=== PATIENT | male | born 1945 | race Caucasian/White ===

== ENCOUNTER 2020-11-09 03:30 | Emergency (ER) | payer MEDICARE ==
[~2020-11-09] VITALS: Ht 170.2 cm; Wt 90.5 kg
[~2020-11-09 03:30] MED LIST: AMLO-186 PO; ATOR40TA59 PO; BUPR150T8 PO; GALA24CA7 PO; METO25TA4 PO; TAMS0.4C97 PO; VENL75CA PO
--- NOTE | 2020-11-09 03:34 | PHYS DOC ---
Past History Past Medical History: Arthritis, Prostatitis, Sciatica General Adult HPI: HPI: ".. This damn hip...and lower back in killing me.. the pain is running all the way down my Rt. leg.. I hurts so bad.. I pissed my pants.. sorry..".." This damn hip has been killing me since 930 last night...".." I ve been taking some aspirin.. but need something else for pain.//" Patient is a 75 year old male who presents with above hx and complaints of Rt. Back and Hip pain. Patient denies any falls. Patient has had past episodes of severe pain in right hip and low back. Patient states that he has no recent fever or chills. No problems with defecation. Does have problems of urination due to enlarged prostate. Patient advises he does have a follow-up appointment this week for evaluation of his enlarged prostate. Patient has had a past history of arthritis. Patient denies any immunosuppression. Patient denies any recent travel. Patient denies any specific ill contacts. Patient normally follows with Dr. Miles. Review of Systems: Review of Systems: Constitutional: Denies fever or chills Eyes: Denies change in visual acuity HENT: Denies nasal congestion or sore throat Respiratory: Denies cough or shortness of breath Cardiovascular: Denies chest pain or edema GI: Denies abdominal pain, nausea, vomiting, bloody stools or diarrhea : Denies dysuria Musculoskeletal: Complains of lumbar sacral and right hip pain Integument: Denies rash Neurologic: Denies headache, focal weakness or sensory changes Endocrine: Denies polyuria or polydipsia Lymphatic: Denies swollen glands Psychiatric: Denies depression or anxiety Family History: Family History: Noncontributory to presentation Current Medications: Current Meds: See nursing for home meds Allergies: Allergies: No known drug allergies Physical Exam: PE: Constitutional: In acute distress, non-toxic appearance. [] HENT: Normocephalic, atraumatic, bilateral external ears normal, oropharynx moist, no oral exudates, nose normal. [] Eyes: PERRLA, EOMI, conjunctiva normal, no discharge. [] Neck: Normal range of motion, no tenderness, supple, no stridor. Some kyphosis Cardiovascular:Heart rate regular rhythm, no murmur, PMI to left Lungs & Thorax: Bilateral breath sounds to apex with few scattered wheezes auscultation [] Abdomen: Bowel sounds normal, soft, no tenderness, no masses, no pulsatile masses. Obese. Distended bladder. Circumcised male with testicles descended. (Patient has office he had some incontinence) Skin: Warm, dry, no erythema, no rash. [] Back: Lumbar sacral tenderness, no CVA tenderness. Pain along right sciatic nerve root. Extremities: Right hip tenderness, no cyanosis, no clubbing, , no edema. [] No cording appreciated in the legs Neurologic: Alert and oriented X 3, moves all extremities on request, does have distal sensory, severe pain along right sciatic root, no focal deficits noted. [] Psychologic: Affect anxious, judgement normal, mood normal. [] EKG: EKG: [] Radiology/Procedures: Radiology/Procedures: [][address] [address] IMAGING REPORT Signed PATIENT: MARQUES DE SOUZA ACCOUNT: [id number] : 1945 LOCATION: ER AGE: 75 SEX: M EXAM STATUS: PRE ER ORD. PHYSICIAN: AARON BANSAL MD REASON: pain in to Rt. hip PROCEDURE: CT PELVIS WO CONTRAST EXAM: CT lumbar spine without IV contrast CLINICAL HISTORY:Reason: pain in to Rt. hip / Spl. Instructions: / History: COMPARISON: None available. TECHNIQUE: Helical CT was performed through the lumbar spine. Axial, coronal and sagittal reformatted images were generated. PQRS compliance statement - One or more of the following individualized dose reduction techniques were utilized for this study: 1. Automated exposure control 2. Adjustment of the mA and/or kV according to patient size 3. Use of iterative reconstruction technique FINDINGS: Small ribs are seen at T12. There is partial sacralization of L5. Using this numbering scheme: Severe L4-5 disc height loss. Associated osteophytes are seen with posterior disc bulge and proliferative change. Moderate L2-3 disc height loss. Mild L1-2 disc height loss. Apparent disc extrusion at L2-3 with cephalad extension of disc material in the right paracentral region resulting in moderate central canal stenosis. Mild to moderate central canal stenosis at L3-4, L1 to and L4-L5. Trace anterolisthesis of L3 and L4 likely degenerative. Trace anterolisthesis of L2 on L3 is also likely degenerative. IMPRESSION: For the purposes of this report there are small ribs at T12 and partial sacralization of L5. 1. Multilevel spondylosis as above 2. Negative acute fracture. 3. Trace anterolisthesis of L2 on L3 and L3 on L4 likely degenerative. 4. Apparent extrusion of disc material at L2-3 with cephalad migration in the right paracentral region. Degenerative disc disease can be better profiled by MRI if clinically indicated. EXAM: CT pelvis without contrast DATE: 11/09/2020 3:48 AM COMPARISON: No prior INDICATION: Reason: pain in to Rt. hip / Spl. Instructions: / History: TECHNIQUE: CT of the pelvis was performed without IV contrast. Axial, coronal and sagittal reformatted images were generated. PQRS compliance statement - One or more of the following individualized dose reduction techniques were utilized for this study: 1. Automated exposure control 2. Adjustment of the mA and/or kV according to patient size 3. Use of iterative reconstruction technique FINDINGS: No acute fracture or dislocation. Joint spaces are preserved. Vascular calcifications are seen. No pubic symphysis or SI joint diastases. Mild hip joint degenerative changes are seen. IMPRESSION: No acute pelvic fracture or dislocation. Electronically signed by: Fermín Gil MD (11/09/2020 4:26 AM) [facility] DICTATED AND SIGNED BY: FERMÍN GIL MD DATE: 11/09/20 0418 CC: AARON BANSAL MD ~MTH0 0 Heart Score: C/O Chest Pain: N/A Risk Factors: Risk Factors: DM, Current or recent (<one month) smoker, HTN, HLP, family history of CAD, obesity. Risk Scores: Score 0 - 3: 2.5% MACE over next 6 weeks - Discharge Home Score 4 - 6: 20.3% MACE over next 6 weeks - Admit for Clinical Observation Score 7 - 10: 72.7% MACE over next 6 weeks - Early Invasive Strategies Course & Med Decision Making: Course & Med Decision Making Pertinent Labs and Imaging studies reviewed. (See chart for details) Patient declined labs. Patient declined admission. Patient requests a trial of pain meds and wished to be discharged home. Risk of missed alternate diagnosis were discussed. Patient given IM injection of Toradol and Norflex. Patient had moderate improvement however still rated pain 7-8 out of 10. Patient given a subcu injection of morphine with marked improvement of complaints. Patient requested discharge home. Patient encouraged to keep follow-up with urology. Patient encouraged to get COVID vaccination. Patient encouraged to follow-up with his primary care doctor Dr. Miles. Patient recommend to get a follow- up MRI lumbosacral spine to evaluate disc protrusion and central canal stenosis. Impression: 1, Sciatica 2. 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 3. History of enlarged prostate with urinary retention 4. Degenerative joint arthritis 5. Right hip pain [] Dragon Disclaimer: Dragon Disclaimer: This electronic medical record was generated, in whole or in part, using a voice recognition dictation system. Dragon Disclaimer This chart was dictated in whole or in part using Voice Recognition software in a busy, high-work load, and often noisy Emergency Department environment. It may contain unintended and wholly unrecognized errors or omissions. Dragon Disclaimer This chart was dictated in whole or in part using Voice Recognition software in a busy, high-work load, and often noisy Emergency Department environment. It may contain unintended and wholly unrecognized errors or omissions. AARON BANSAL MD Nov 09, 2020 03:34
[2020-11-09 03:35] VITALS: BP 133/62
[2020-11-09] MEDS ORDERED: KETOROLAC 30 MG/ML VIAL. ONE (03:43)
[2020-11-09] MEDS ORDERED: ORPHENADRINE CITRATE 60 MG/2 ML VIAL. IM ONE (04:00)
[2020-11-09] MEDS ORDERED: KETOROLAC 60 MG/2 ML VIAL. IM ONE (04:00)
--- NOTE | 2020-11-09 04:29 | RAD ---
EXAM: CT lumbar spine without IV contrast CLINICAL HISTORY:Reason: pain in to Rt. hip / Spl. Instructions: / History: COMPARISON: None available. TECHNIQUE: Helical CT was performed through the lumbar spine. Axial, coronal and sagittal reformatted images were generated. PQRS compliance statement - One or more of the following individualized dose reduction techniques wer e utilized for this study: 1. Automated exposure control 2. Adjustment of the mA and/or kV according to patient size 3. Use of iterative reconstruction technique FINDINGS: Small ribs are seen at T12. There is partial sacralization of L5. Using this numbering scheme: Severe L4-5 disc height loss. Associated osteophytes are seen with posterior disc bulge and prolifera tive change. Moderate L2-3 disc height loss. Mild L1-2 disc height loss. Apparent disc extrusion at L2-3 with cephalad extension of disc material in the right paracentral reg ion resulting in moderate central canal stenosis. Mild to moderate central canal stenosis at L3-4, L1 to and L4-L5. Trace anterolisthesis of L3 and L4 likely degenerative. Trace anterolisthesis of L2 on L3 is also lik moisés degenerative. IMPRESSION: For the purposes of this report there are small ribs at T12 and partial sacralization of L5. 1. Multilevel spondylosis as above 2. Negative acute fracture. 3. Trace anterolisthesis of L2 on L3 and L3 on L4 likely degenerative. 4. Apparent extrusion of disc material at L2-3 with cephalad migration in the right paracentral evelin on. Degenerative disc disease can be better profiled by MRI if clinically indicated. EXAM: CT pelvis without contrast DATE: 11/09/2020 3:48 AM COMPARISON: No prior INDICATION: Reason: pain in to Rt. hip / Spl. Instructions: / History: TECHNIQUE: CT of the pelvis was performed without IV contrast. Axial, coronal and sagittal reformatte d images were generated. PQRS compliance statement - One or more of the following individualized dose reduction techniques wer e utilized for this study: 1. Automated exposure control 2. Adjustment of the mA and/or kV according to patient size 3. Use of iterative reconstruction technique FINDINGS: No acute fracture or dislocation. Joint spaces are preserved. Vascular calcifications are seen. No pu bic symphysis or SI joint diastases. Mild hip joint degenerative changes are seen. IMPRESSION: No acute pelvic fracture or dislocation. Electronically signed by: Fermín Fierro MD (11/09/2020 4:26 AM) [facility]
[2020-11-09] MEDS ORDERED: MORPHINE SULFATE 10 MG/ML SYRINGE. SQ ONE (05:30)
== END 2020-11-09 06:09 | disposition home or self-care (01) ==
LOC: MERGE 03:30 → ER 03:30
DX: M54.41 Lumbago with sciatica, right side (principal); M48.00 Spinal stenosis, site unspecified; M51.27 Other intervertebral disc displacement, lumbosacral region; M19.90 Unspecified osteoarthritis, unspecified site; M25.551 Pain in right hip
CPT/HCPCS: 72131; 72192; 96372; 99284; J1885; J2270; J2360